=== PATIENT | male | born 1980 | race Hispanic/Latino ===

== ENCOUNTER 2018-12-27 11:53 | Emergency (ER) | payer OTHER, SELFPAY ==
[2018-12-27 12:06] VITALS: BP 111/74; PULSE 70; RESP 14; TEMP 36.4; O2SAT 99
[2018-12-27] MEDS: LIDO 1%/SOD BICARB 8.4% (10ML) 10 ML SYRINGE INJ (14:21)
--- NOTE | 2018-12-27 14:21 | DI.RAD.S_ITS ---
PROCEDURE: XR KNEE RT 3V INDICATIONS: knee injury TECHNIQUE: 3 views of the knee were acquired. COMPARISON: None. FINDINGS: Bones: No fractures or dislocations. No suspicious bony lesions. Soft tissues: No joint effusion. No suspicious soft tissue calcifications. IMPRESSION: No trauma found. Dictated by: Arjun Garcia M.D. on 12/27/2018 at 15:01 Approved by: Arjun Garcia M.D. on 12/27/2018 at 15:01
[2018-12-27] MEDS: TET,DIPH,PERTUSS(ACELL),VAC/PF 0.5 ML SYRINGE IM (14:24)
--- NOTE | 2018-12-27 15:07 | ED.SKABFB ---
HPI - Skin/Abscess/Foreign Bdy <KVNG Cid - Last Filed: 12/27/18 15:28> General Chief complaint: Skin/Abscess/Foreign Body Stated complaint: right knee laceration today L & I Time Seen by Provider: 12/27/18 13:57 Source: patient Mode of arrival: Ambulatory Limitations: no limitations History of Present Illness HPI narrative: The patient is a 38-year-old male Sudanese-speaking gentleman who denies any pertinent medical history presents with a chief complaint of laceration to his right knee. He states that he hit his knee with pruning paulino while work today. He does not know his last tetanus date. He is concerned about wound contamination. He denies any fevers nausea vomiting or diarrhea. He states he can ambulate on his knee in that he can bend his knee. The interview was conducted using language line as the patient does not speak Uzbek Related Data Home Medications Medication Instructions Recorded Confirmed No Known Home Medications 12/27/18 12/27/18 Allergies Allergy/AdvReac Type Severity Reaction Status Date / Time No Known Drug Allergies Allergy Verified 12/27/18 12:10 Review of Systems <[facility] - Last Filed: 12/27/18 15:28> Review of Systems Narrative: GENERAL: Denies chills, fatigue, malaise, fever, sweats. HEENT: Denies sinus pain, ear pain, sore throat, difficulty swallowing, dizziness. RESPIRATORY: Denies dyspnea, cough, wheezing, hemoptysis, sputum. CARDIOVASCULAR: Denies chest pain, palpitations, orthopnea, edema, GASTROINTESTINAL: Denies nausea, vomiting, abdominal pain, diarrhea, constipation, melena. : Denies dysuria, frequency, incontinence, hematuria, urinary retention. MUSCULOSKELETAL: denies weakness, joint pain, or bony pain SKIN: See HPI NEUROLOGIC: Denies weakness, headache, numbness, change in speech, confusion, seizures, incoordination. PSYCHIATRIC: No concerning psychosocial issues. 12 point review of systems is negative except for those stated above Exam <KVNG Cid - Last Filed: 12/27/18 15:28> Narrative Exam Narrative: GENERAL: This is a well-nourished, well-developed patient, in mild distress. HEAD: Atraumatic. Normocephalic. No temporal or scalp tenderness. EYES: Pupils equal round and reactive. Extraocular motions intact. No scleral icterus. No injection or drainage. ENT: Nose without bleeding, purulent drainage or septal hematoma. Throat without erythema, tonsillar hypertrophy or exudate. Uvula midline. Airway patent. NECK: Trachea midline. No JVD or lymphadenopathy. Supple, nontender, no meningeal signs. CARDIOVASCULAR: Regular rate and rhythm RESPIRATORY: Clear to auscultation. Breath sounds equal bilaterally. No wheezes, rales, or rhonchi. No cough. No increased respiratory. No accessory muscle use. EXTREMITIES: See skin exam. Able flex and extend right knee. Positive pedal pulses. Full range of motion noted right knee. BACK: Nontender without deformity or crepitance. No flank tenderness. NEURO: AOx3. SKIN: 2 cm barrow shaped laceration on anterior aspect of right patella. Through dermis. No obvious muscle or tendon involvement. No obvious wound contamination. Initial Vital Signs Initial Vital Signs: Vital Signs Temperature 97.6 F 12/27/18 12:06 Pulse Rate 70 12/27/18 12:06 Respiratory Rate 14 12/27/18 12:06 Blood Pressure 111/74 12/27/18 12:06 Pulse Oximetry 99 12/27/18 12:06 <Adeel Boyd DO - Last Filed: 12/27/18 18:19> Initial Vital Signs Initial Vital Signs: Vital Signs Temperature 97.6 F 12/27/18 12:06 Pulse Rate 70 12/27/18 12:06 Respiratory Rate 14 12/27/18 12:06 Blood Pressure 111/74 12/27/18 12:06 Pulse Oximetry 99 12/27/18 12:06 Procedures <CAROLINE Cid - Last Filed: 12/27/18 15:28> Laceration Repair Laceration 1: Site: lower extremity Side (If applicable): right Size (cm): 2 Description: flap Depth: simple, single layer Local Anesthetic: lidocaine 1% and with bicarb Amount of anesthesia used (mL): 5 Pre-repair: wound explored, irrigated extensively (Flushed with sterile water, iodine ) and deep structures intact Skin layer closed with: nylon Number of sutures: 5 Technique: simple, interrupted Course <CAROLINE Cid - Last Filed: 12/27/18 15:28> Orders Ordered: ED Orders 12/27/18 14:21 XR knee RT 3V Stat Discontinued Medications Bacitracin (Bacitracin) 1 applic TOP NOW ONE Stop: 12/27/18 15:20 Last Admin: 12/27/18 15:23 Dose: 1 applic Documented by: HUGO Diphtheria/Tetanus/Acell Pertussis (Adacel) 0.5 ml IM .ONCE ONE Stop: 12/27/18 14:22 Last Admin: 12/27/18 14:24 Dose: 0.5 ml Documented by: HUGO Lidocaine/Sodium Bicarbonate (Buffered Lidocaine 10 Ml Syr) 10 ml INJ NOW ONE Stop: 12/27/18 14:05 Last Admin: 12/27/18 14:21 Dose: 10 ml Documented by: HUGO Vital Signs Vital signs: Vital Signs - 8 hr 12/27/18 12:06 12/27/18 15:33 Temperature 97.6 F Pulse Rate 70 64 Respiratory Rate 14 12 Blood Pressure 111/74 Blood Pressure [Left Arm] 115/78 Pulse Oximetry 99 99 <Adeel Boyd DO - Last Filed: 12/27/18 18:19> Orders Ordered: ED Orders 12/27/18 14:21 XR knee RT 3V Stat Discontinued Medications Bacitracin (Bacitracin) 1 applic TOP NOW ONE Stop: 12/27/18 15:20 Last Admin: 12/27/18 15:23 Dose: 1 applic Documented by: HUGO Diphtheria/Tetanus/Acell Pertussis (Adacel) 0.5 ml IM .ONCE ONE Stop: 12/27/18 14:22 Last Admin: 12/27/18 14:24 Dose: 0.5 ml Documented by: HUGO Lidocaine/Sodium Bicarbonate (Buffered Lidocaine 10 Ml Syr) 10 ml INJ NOW ONE Stop: 12/27/18 14:05 Last Admin: 12/27/18 14:21 Dose: 10 ml Documented by: HUGO Vital Signs Vital signs: Vital Signs - 8 hr 12/27/18 12:06 12/27/18 15:33 Temperature 97.6 F Pulse Rate 70 64 Respiratory Rate 14 12 Blood Pressure 111/74 Blood Pressure [Left Arm] 115/78 Pulse Oximetry 99 99 MDM - Skin/Abscess/Foreign Bdy <CAROLINE Cid - Last Filed: 12/27/18 15:28> Imaging Data Knee x-ray: Radiologist's impression: Robb Kenny 38 M [address] [address] XRay Report Signed Patient: Rell Kenny#: [id number] : 1980Acct:[id number] Age/Sex: 38 / MDate of Service: 12/27/18 Loc: ED Accession Number: [id number] Procedure: XR knee RT 3V Ordering Provider: Meoldie Butterfield PROCEDURE: XR KNEE RT 3V INDICATIONS: knee injury TECHNIQUE: 3 views of the knee were acquired. COMPARISON: None. FINDINGS: Bones: No fractures or dislocations. No suspicious bony lesions. Soft tissues: No joint effusion. No suspicious soft tissue calcifications. IMPRESSION: No trauma found. Dictated by: Arjun Garcia M.D. on 12/27/2018 at 15:01 Approved by: Arjun Garcia M.D. on 12/27/2018 at 15:01 [facility] Narrative Medical decision making narrative: The patient is a 38-year-old male who presents with a chief complaint of laceration. His tetanus status is unknown so as updated in the emergency department x-ray was taken out to rule out any fracture or foreign body. This came back negative. The wound was copiously flushed and closed as per procedural note. I discussed at length monitoring for signs and symptoms of infection, discussed not submerging his knee dirty water, discussed at length follow up for suture removal in about 10 days. Patient has no questions or concerns upon discharge. Language line was used during patient's stay. Discharge Plan Departure Patient Disposition: Home Clinical Impression: Laceration Discharge Date/Time: 12/27/18 15:43 Instructions: DI for Laceration Repair -- Simple Activity Restrictions/Additional Instructions: Today we sutured your laceration. Please monitor for signs and symptoms of infection such as redness pus swelling etc Please come back to the emergency department for any acute concerns. Please follow up with primary care provider for suture removal in approximately 10 days. Today we updated her tetanus. Your x-ray came back with no acute findings. Prescriptions: No Action No Known Home Medications RF: 0 Referrals: [facility] [Outside] <Adeel Boyd DO - Last Filed: 12/27/18 18:19> Sign Out Provider Sign Out Attestation: I was available for consultation during this patient's emergency department visit. This chart is signed by myself for administrative purposes only. I did not have direct contact with this patient during this visit. They were seen independently by the APC.
[2018-12-27] MEDS: BACITRACIN OINT 0.9 GM PCKT 1 APPLIC TOP (15:23)
[2018-12-27 15:33] VITALS: BP 115/78; PULSE 64; RESP 12; O2SAT 99
== END 2018-12-27 15:43 | disposition home or self-care (01) ==
PROVIDERS: Emergency Provider Nurse Practitioner Family
DX: S81.011A Laceration without foreign body, right knee, initial encounter (principal); W27.1XXA Contact with garden tool, initial encounter; Y99.0 Civilian activity done for income or pay
CPT/HCPCS: 12001; 73562; 90471; 99283; 90715